=== PATIENT | female | born 2000 | race African-American/Black ===

== ENCOUNTER 2022-11-21 10:22 | Outpatient (CLI) | payer OTHER | END 2022-11-21 10:23 | disposition home or self-care (01) | LOC: CSHMRI 10:22 | PROVIDERS: ATTEND Neurological Surgery | DX: M51.37 Other intervertebral disc degeneration, lumbosacral region (principal); M47.817 Spondylosis without myelopathy or radiculopathy, lumbosacral region; M43.17 Spondylolisthesis, lumbosacral region; M79.89 Other specified soft tissue disorders | CPT/HCPCS: 72148; 72158 ==